=== PATIENT | male | born 2000 | race Caucasian/White ===

== ENCOUNTER 2020-03-13 17:42 | Emergency (ER) | payer BC ==
[~2020-03-13] VITALS: Ht 182.9 cm; Wt 102.0 kg
[2020-03-13] MEDS ORDERED: ZPAK PO ×2 (18:16→18:51)
[2020-03-13 18:40] VITALS: BP 153/71
== END 2020-03-13 18:40 | disposition home or self-care (01) | DRG 605 ==
LOC: ED 17:42
DX: S61.257A Open bite of left little finger without damage to nail, initial encounter (principal); S60.812A Abrasion of left wrist, initial encounter; S61.451A Open bite of right hand, initial encounter; S61.551A Open bite of right wrist, initial encounter; W55.01XA Bitten by cat, initial encounter; Y93.89 Activity, other specified; Y92.89 Other specified places as the place of occurrence of the external cause; Y99.0 Civilian activity done for income or pay

== ENCOUNTER 2021-03-24 18:31 | Emergency (ER) | payer OTHER, BC ==
[~2021-03-24] VITALS: Ht 182.9 cm; Wt 100.0 kg
[~2021-03-24 18:31] MED LIST: ZPAK PO
[2021-03-24 20:18] VITALS: BP 122/57
== END 2021-03-24 20:25 | disposition home or self-care (01) | DRG 552 ==
LOC: ED 18:31
DX: S16.1XXA Strain of muscle, fascia and tendon at neck level, initial encounter (principal); S46.911A Strain of unspecified muscle, fascia and tendon at shoulder and upper arm level, right arm, initial encounter; J45.909 Unspecified asthma, uncomplicated; V69.40XA Driver of heavy transport vehicle injured in collision with unspecified motor vehicles in traffic accident, initial encounter